=== PATIENT | female | born 1975 | race Two or more races ===

== ENCOUNTER 2022-08-02 21:09 | Emergency (ER) | payer OTHER ==
[~2022-08-02] VITALS: Ht 152.4 cm; Wt 62.6 kg
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
--- NOTE | 2022-08-03 00:09 | NUR ---
Patient discharged to home in stable condition. Written and verbal after care instructions given. Patient verbalizes understanding of instruction.
[2022-08-03 00:12] VITALS: BP 112/74
== END 2022-08-03 00:13 | disposition home or self-care (01) ==
LOC: ER 21:12
DX: R51.9 Headache, unspecified (principal); M54.2 Cervicalgia; Z88.8 Allergy status to other drugs, medicaments and biological substances
CPT/HCPCS: 70450-TC; 72125-TC